=== PATIENT | male | born 1990 | race Two or more races ===

== ENCOUNTER 2017-08-18 14:09 | Emergency (ER) | payer MEDICAID ==
[~2017-08-18] VITALS: Ht 188 cm; Wt 121.6 kg
[2017-08-18 14:18] VITALS: BP 149/83
== END 2017-08-18 14:27 | disposition left against medical advice (07) ==
LOC: ER 14:09
DX: G40.909 Epilepsy, unspecified, not intractable, without status epilepticus (principal); R51 Headache

== ENCOUNTER 2021-12-10 23:58 | Emergency (ER) | payer MEDICAID ==
[~2021-12-10] VITALS: Ht 185.4 cm; Wt 90.7 kg
[2021-12-11] MEDS ORDERED: SODIUM CHLORIDE 0.9% 1,000 ML IV ONE (01:00)
[2021-12-11 03:46] LABS: Basophils # (auto) 0 10 ^3/uL (0-0.2); Basophils % (auto) 0.4 % (0.0-2.0); Eosinophils # (auto) 0.1 10 ^3/uL (0-0.8); Nucleated Red Blood Cells % 0.1 %
[2021-12-11 03:49] LABS: Eosinophils % (auto) 1.3 % (0.0-7.0); Hematocrit 45.3 % (41.0-53.0); Lymphocytes % (auto) 25.4 % (10.0-50.0); Mean Corpuscular Hemoglobin 26.2 pg (28.0-32.0); Mean Corpuscular Hgb Conc. 33.2 g/dL (32.0-36.0); Mean Corpuscular Volume 79.1 fL (80.0-100.0); Monocytes # (auto) 0.9 10 ^3/uL (0-1.3); Monocytes % (auto) 11.3 % (0.0-12.0); Neutrophils # (auto) 4.8 10 ^3/uL (1.6-8.6); Neutrophils % (auto) 61.6 % (37.0-80.0); Red Blood Cells 5.73 10^6/uL (4.5-5.90); Red Cell Distribution Width 14.3 % (11.8-14.3); White Blood Cell 7.8 10^3/uL (4.4-10.8)
[2021-12-11 04:17] LABS: Potassium 3.3 mmol/L (3.5-5.1)
[2021-12-11 04:21] LABS: Albumin 3.7 g/dL (3.4-5.0); BUN/Creatinine Ratio 15.3; Calcium 9.7 mg/dL (8.5-10.1)
[2021-12-11 04:23] LABS: Bilirubin, Total 0.3 mg/dL (0.2-1.0); Total Protein 8.3 g/dL (6.4-8.2)
[2021-12-11 06:35] LABS: Salicylate < 1.7 mg/dL (2.8-20.0)
[2021-12-11 06:38] LABS: Acetaminophen < 2.0 ug/mL (10-30)
[2021-12-11] MEDS ORDERED: POTASSIUM EFFERVESENT TAB 25 MEQ PO ONE (14:45)
[2021-12-11 19:45] VITALS: BP 125/62
== END 2021-12-12 15:48 | disposition left against medical advice (07) ==
LOC: EDBD 23:58 → ER 23:58
DX: R41.82 Altered mental status, unspecified (principal); R56.9 Unspecified convulsions; F20.9 Schizophrenia, unspecified
CPT/HCPCS: 36415; 70450; 71045; 80053; 80320; 80329; 82140; 82542; 83735; 84484; 85025; 93005

== ENCOUNTER 2021-12-12 23:59 | Emergency (ER) | payer MEDICAID ==
[~2021-12-12] VITALS: Ht 188 cm; Wt 79.4 kg
[2021-12-14 16:34] VITALS: BP 135/89
== END 2021-12-14 16:41 | disposition home or self-care (01) ==
LOC: ER 12-13 00:04
DX: R41.82 Altered mental status, unspecified (principal); F20.9 Schizophrenia, unspecified; R56.9 Unspecified convulsions; F19.90 Other psychoactive substance use, unspecified, uncomplicated